=== PATIENT | female | born 1930 | race Caucasian/White ===

== ENCOUNTER → 2016-12-01 | Outpatient (CLI) | payer MEDICARE, BC ==
[~2016-12-01] MED LIST: COLACE100 MG PO; COZAAR50 MG PO; METAMUCIL PACKE1 PKT PO; MILK OF MA400 MG/5 M PO; MIRALAX17 GM PO; NORCO 5-325 MG1 TAB PO; ULTRAM50 MG PO; VALIUM5 MG PO; XARELTO10 MG PO; ZOCOR20 MG PO
[2016-12-01 08:52] LABS: CREATININE 0.9 mg/dL (0.5-1.1)
== END | disposition disaster alternative care site (69) ==
LOC: GLAB 11-26 09:00 → GRAD 11-26 10:00 → GLAB 08:00 → GRAD 08:09
PROVIDERS: Otolaryngology
DX: H91.8X3 Other specified hearing loss, bilateral (principal); G31.9 Degenerative disease of nervous system, unspecified

== ENCOUNTER → 2017-06-13 | Outpatient (CLI) | payer MEDICARE, BC ==
[~2017-06-13] MED LIST changes: +COQ-10100 MG PO; +CPAP INH; +OXYGEN M-15 INH
== END ==
LOC: LNHI 15:47
DX: I25.10 Atherosclerotic heart disease of native coronary artery without angina pectoris (principal); I47.1 Supraventricular tachycardia